=== PATIENT | female | born 1985 | race Caucasian/White ===

== ENCOUNTER 2020-05-23 17:36 | Emergency (ER) | payer OTHER, MEDICAID ==
[~2020-05-23] VITALS: Ht 167.6 cm; Wt 74.8 kg
[~2020-05-23 17:36] MED LIST: ACETAMINOPHEN-1 EAC1 PO; AMBIEN 5 MG TABL5 M1 PO; AMOXICILLIN 50500 MG PO; BENTYL 20 MG TA20 M1 PO; BUSPIRONE HCL10 MG PO; CALCIUM CITRAT250 MG PO; CELEXA20 MG; CLEOCIN HCL150 MG PO; FLEXERIL PO; HYDROCODONE-AP1 EAC6 PO; IBUPROFEN 800800 M1 PO; KETOCONAZOLE 2200 MG; LIDOCAINE VISC100 M1 SWISH&SPIT; LIDOCAINE VISC100 ML SWISH&SPIT; ONDANSETRON HCL4 M2 PO; TUMS PO; ZOFRAN ODT4 MG PO; ZOLOFT25 MG PO
[2020-05-23] MEDS ORDERED: [UNRECOGNIZED DRUG - OTHER] (17:47)
[2020-05-23] MEDS ORDERED: CALCIUM500 M1 PO (17:47)
[2020-05-23 17:55] LABS: URINE BLOOD 3+ (Negative); URINE CLARITY CLEAR; URINE COLOR YELLOW; URINE GLUCOSE-RANDOM NEGATIVE (Negative); URINE LEUKOCYTES-REFLEX NEGATIVE (Negative); URINE NITRITE-REFLEX NEGATIVE (Negative); URINE PROTEIN 1+ (Negative); URINE SPECIFIC GRAVITY 1.025 (1.005-1.030); URINE UROBILINOGEN 0.2 E.U./dl (0.2-1.0)
[2020-05-23 17:59] LABS: ICTOTEST (BILI CONFIRMATORY) Negative (Negative); URINE BILIRUBIN 1+ (Negative); URINE KETONES 3+ (Negative)
[2020-05-23 18:00] LABS: ABSOLUTE BASOPHILS 0.1 thou/uL (0.0-0.2); ABSOLUTE EOSINOPHILS 0.1 thou/uL (0.0-0.7); ABSOLUTE LYMPHOCYTES 2.6 thou/uL (0.8-5.3); ABSOLUTE MONOCYTES 0.5 thou/uL (0.0-1.2); ABSOLUTE NEUTROPHILS 6.9 thou/uL (1.6-8.1); BASOPHILS 0.7 %; EOSINOPHILS 0.9 %; HEMATOCRIT 42.2 % (37.0-47.0); HEMOGLOBIN 13.9 gm/dL (12.0-15.0); LYMPHOCYTES 25.8 %; MCH 25.4 pg (26.0-34.0); MCHC 32.8 g/dL (28.0-37.0); MCV 77.5 fL (80.0-100.0); MONOCYTES 5.3 %; MPV 8.3 fl. (7.2-11.1); NUCLEATED RBCS 0 /100WBC; PLATELET COUNT* 245 thou/uL (150-400); POLYS 67.3 %; RBC 5.45 mil/uL (4.20-5.00); RDW-CV 15.4 % (10.5-14.5); WBC 10.2 thou/uL (4.0-11.0)
[2020-05-23 18:03] LABS: MUCUS 4-6 Moderate strn/LPF (None Seen)
[2020-05-23 18:04] LABS: SQUAMOUS >10 Many /LPF (0-3)
[2020-05-23 18:05] LABS: CASTS None Seen /LPF (None Seen); CRYSTALS None Seen /LPF (None Seen); URINE WBC-REFLEX 0-5 Rare /HPF (0-5)
[2020-05-23 18:09] LABS: CALCIUM 6.9 mg/dL (8.5-10.1); CREATININE 0.8 mg/dL (0.6-1.3); POTASSIUM 3.2 mmol/L (3.5-5.1)
[2020-05-23 18:13] LABS: TOTAL BILIRUBIN 0.4 mg/dL (<0.1-1.0); TOTAL PROTEIN 8.2 g/dL (6.4-8.2)
[2020-05-23] MEDS ORDERED: NORCO 5-325 TA1 EAC2 PO (20:05)
[2020-05-23 20:17] VITALS: BP 130/67
--- NOTE | 2020-05-24 14:06 | EKG ---
[place] [address] ELECTROCARDIOGRAM REPORT Name: DELANEYKRISTINE REZA Room: [facility]#: [id number] Admission: 05/23/20 Attend Phys: Discharge: 05/23/20 Date of : 89 Date of Service: 05/23/201802 Report #: [id number] THIS REPORT FOR: //name// [facility] ED Test Date: 2020-05-23 Test Time: 18:03:18 Pat Name: KRISTINE DELANEY Department: Room: Gender: F Director Diversity: : 1985 Requested By: Ion Sotelo Order Number: [id number] MD: Noam Daniels Measurements Intervals [place] Rate: 92 P: 61 SD: 138 QRS: 64 QRSD: 78 T: 56 QT: 380 QTc: 471 Interpretive Statements Sinus rhythm Probable left atrial enlargement RSR' in V1 or V2, right VCD or RVH No previous ECG available for comparison Electronically Signed On 05-24-2020 14:06:27 [employer] by Noam Daniels [email or web address] <ELECTRONICALLY SIGNED> By: Daniela Daniels MD, [facility] 05/24/20 1406 02 02 Daniela Daniels MD, [facility] /EPI
== END 2020-05-23 20:19 | disposition home or self-care (01) ==
LOC: M.ERS 17:36
PROVIDERS: Family Medicine
DX: R10.31 Right lower quadrant pain (principal); R11.0 Nausea; Z79.899 Other long term (current) drug therapy; Z91.040 Latex allergy status

== ENCOUNTER 2020-06-17 20:31 | Emergency (ER) | payer OTHER, MEDICAID ==
[~2020-06-17] VITALS: Ht 167.6 cm; Wt 86.2 kg
[~2020-06-17 20:31] MED LIST changes: +CALCIUM500 M1 PO; +NORCO 5-325 TA1 EAC2 PO; +[UNRECOGNIZED DRUG - OTHER]
[2020-06-17 20:52] LABS: URINE BILIRUBIN NEGATIVE (Negative); URINE BLOOD 2+ (Negative); URINE CLARITY CLEAR; URINE COLOR YELLOW; URINE GLUCOSE-RANDOM NEGATIVE (Negative); URINE KETONES 1+ (Negative); URINE LEUKOCYTES NEGATIVE (Negative); URINE NITRITE NEGATIVE (Negative); URINE PROTEIN NEGATIVE (Negative); URINE UROBILINOGEN 0.2 E.U./dl (0.2-1.0)
[2020-06-17 20:58] LABS: ABSOLUTE BASOPHILS 0.1 thou/uL (0.0-0.2); ABSOLUTE LYMPHOCYTES 2.7 thou/uL (0.8-5.3); ABSOLUTE MONOCYTES 0.7 thou/uL (0.0-1.2); ABSOLUTE NEUTROPHILS 8.9 thou/uL (1.6-8.1); BASOPHILS 0.5 %; EOSINOPHILS 0.4 %; HEMATOCRIT 43.6 % (37.0-47.0); HEMOGLOBIN 13.9 gm/dL (12.0-15.0); LYMPHOCYTES 21.7 %; MCH 24.8 pg (26.0-34.0); MCHC 31.9 g/dL (28.0-37.0); MCV 77.7 fL (80.0-100.0); MONOCYTES 5.8 %; MPV 8.4 fl. (7.2-11.1); NUCLEATED RBCS 0 /100WBC; PLATELET COUNT* 265 thou/uL (150-400); POLYS 71.6 %; RBC 5.61 mil/uL (4.20-5.00); RDW-CV 15.2 % (10.5-14.5); WBC 12.5 thou/uL (4.0-11.0)
[2020-06-17 21:03] LABS: SQUAMOUS 4-10 Moderate /LPF (0-3)
[2020-06-17 21:04] LABS: BACTERIA >30 Many /HPF (None Seen); CASTS None Seen /LPF (None Seen); CRYSTALS None Seen /LPF (None Seen); MUCUS 4-6 Moderate strn/LPF (None Seen); URINE WBC 0-5 Rare /HPF (0-5)
[2020-06-17 21:07] LABS: CALCIUM 8.2 mg/dL (8.5-10.1); CREATININE 0.9 mg/dL (0.6-1.3); POTASSIUM 3.5 mmol/L (3.5-5.1)
[2020-06-17 21:12] LABS: TOTAL BILIRUBIN 0.3 mg/dL (<0.1-1.0); TOTAL PROTEIN 8.2 g/dL (6.4-8.2)
[2020-06-17] MEDS ORDERED: BENTYL 10 MG CA10 MG PO (23:16)
[2020-06-17] MEDS ORDERED: ZOFRAN ODT4 MG PO (23:16)
[2020-06-18 00:01] VITALS: BP 145/76
== END 2020-06-18 00:01 | disposition home or self-care (01) ==
LOC: M.ERS 20:31
PROVIDERS: Physician Assistant
DX: K52.9 Noninfective gastroenteritis and colitis, unspecified (principal); E89.0 Postprocedural hypothyroidism; Z91.040 Latex allergy status

== ENCOUNTER 2020-12-22 18:25 | Emergency (ER) | payer OTHER, MEDICAID ==
[~2020-12-22] VITALS: Ht 167.6 cm; Wt 77.1 kg
[~2020-12-22 18:25] MED LIST changes: +BENTYL 10 MG CA10 MG PO
[2020-12-22 20:19] LABS: URINE BILIRUBIN NEGATIVE (Negative); URINE BLOOD TRACE (Negative); URINE CLARITY CLEAR; URINE COLOR YELLOW; URINE GLUCOSE-RANDOM NEGATIVE (Negative); URINE KETONES NEGATIVE (Negative); URINE LEUKOCYTES-REFLEX TRACE (Negative); URINE NITRITE-REFLEX NEGATIVE (Negative); URINE PROTEIN NEGATIVE (Negative); URINE UROBILINOGEN 0.2 E.U./dl (0.2-1.0)
[2020-12-22 20:23] LABS: BACTERIA-REFLEX 1-9 Few /HPF (None Seen); CASTS None Seen /LPF (None Seen); CRYSTALS None Seen /LPF (None Seen); SQUAMOUS 0-3 Few /LPF (0-3); URINE RBC 0-2 Rare /HPF (0-2); URINE WBC-REFLEX 0-5 Rare /HPF (0-5)
[2020-12-22 21:25] LABS: ABSOLUTE BASOPHILS 0.1 thou/uL (0.0-0.2); ABSOLUTE EOSINOPHILS 0.1 thou/uL (0.0-0.7); ABSOLUTE LYMPHOCYTES 3.2 thou/uL (0.8-5.3); ABSOLUTE MONOCYTES 0.7 thou/uL (0.0-1.2); ABSOLUTE NEUTROPHILS 6.1 thou/uL (1.6-8.1); BASOPHILS 0.9 %; EOSINOPHILS 1.5 %; HEMATOCRIT 39.6 % (37.0-47.0); HEMOGLOBIN 13.3 gm/dL (12.0-15.0); LYMPHOCYTES 31.5 %; MCH 27.4 pg (26.0-34.0); MCHC 33.6 g/dL (28.0-37.0); MCV 81.6 fL (80.0-100.0); MONOCYTES 6.5 %; MPV 8.3 fl. (7.2-11.1); NUCLEATED RBCS 0 /100WBC; PLATELET COUNT* 208 thou/uL (150-400); POLYS 59.6 %; RBC 4.86 mil/uL (4.20-5.00); RDW-CV 15.1 % (10.5-14.5); WBC 10.2 thou/uL (4.0-11.0)
[2020-12-22 21:41] LABS: CALCIUM 6.8 mg/dL (8.5-10.1); CREATININE 0.8 mg/dL (0.6-1.3); POTASSIUM 4.1 mmol/L (3.5-5.1)
[2020-12-22 21:44] LABS: ALBUMIN 3.4 g/dL (3.4-5.0); MAGNESIUM 1.9 mg/dL (1.8-2.4); TOTAL BILIRUBIN 0.2 mg/dL (<0.1-1.0); TOTAL PROTEIN 6.9 g/dL (6.4-8.2)
[2020-12-22] MEDS ORDERED: ZOFRAN ODT4 MG PO (22:08)
[2020-12-22] MEDS ORDERED: FLEXERIL PO (22:08)
[2020-12-22 22:18] VITALS: BP 134/83
--- NOTE | 2020-12-23 16:25 | EKG ---
[place] [address] ELECTROCARDIOGRAM REPORT Name: DELANEYKRISTINE Seals Room: [facility]#: [id number] Admission: 12/22/20 Attend Phys: Discharge: 12/22/20 Date of : 89 Date of Service: 12/22/20 1830 Report #: [id number] THIS REPORT FOR: //name// [facility] ED Test Date: 2020-12-22 Test Time: 18:30:00 Pat Name: KRISTINE DELANEY Department: Room: Gender: F Gopherman: DOROTHY : 1985 Requested By: Carol Henson Order Number: [id number] MD: Phillip Paulino Measurements Intervals [place] Rate: 86 P: 39 AL: 119 QRS: 74 QRSD: 96 T: 58 QT: 353 QTc: 423 Interpretive Statements Sinus rhythm with sinus arrhythmia Borderline short AL interval Compared to ECG 05/23/2020 18:03:18 Right ventricular hypertrophy no longer present Electronically Signed On 12-23-2020 16:25:08 CDT by Phillip Paulino [email or web address] <ELECTRONICALLY SIGNED> By: Phillip Paulino MD, [facility] 12/23/20 1625 1830 1830 Phillip Paulino MD, [facility] /EPI
== END 2020-12-22 22:19 | disposition home or self-care (01) ==
LOC: M.ERS 18:25
PROVIDERS: Emergency Medicine
DX: R07.89 Other chest pain (principal); R51.9 Headache, unspecified; E83.51 Hypocalcemia; Z91.040 Latex allergy status

== ENCOUNTER 2021-05-09 12:25 | Emergency (ER) | payer OTHER, MEDICAID ==
[~2021-05-09] VITALS: Ht 167.6 cm; Wt 77.1 kg
[2021-05-09 12:30] VITALS: BP 135/86
[2021-05-09] MEDS ORDERED: NEURONTIN100 MG PO (12:32)
[2021-05-09] MEDS ORDERED: DESYREL150 MG PO (12:33)
[2021-05-09] MEDS ORDERED: APAP W/CODEINE1 TA2 PO (12:52)
[2021-05-09] MEDS ORDERED: LIDOCAINE VISC100 ML SWISH&SPIT (12:52)
[2021-05-09] MEDS ORDERED: AMOXIL 875 MG875 M1 PO (12:52)
== END 2021-05-09 13:06 | disposition home or self-care (01) ==
LOC: M.ERS 12:25
DX: K08.89 Other specified disorders of teeth and supporting structures (principal); F32.9 Major depressive disorder, single episode, unspecified; Z79.899 Other long term (current) drug therapy; Z91.040 Latex allergy status

== ENCOUNTER 2021-06-09 09:57 | Emergency (ER) | payer OTHER, MEDICAID ==
[~2021-06-09] VITALS: Ht 167.6 cm; Wt 71.2 kg
[~2021-06-09 09:57] MED LIST changes: +AMOXIL 875 MG875 M1 PO; +APAP W/CODEINE1 TA2 PO; +DESYREL150 MG PO; +NEURONTIN100 MG PO
[2021-06-09] MEDS ORDERED: CALCIUM500 MG PO (10:13)
[2021-06-09] MEDS ORDERED: PARICALCITOL1 MCG PO (10:13)
[2021-06-09 11:40] VITALS: BP 140/83
== END 2021-06-09 11:41 | disposition home or self-care (01) ==
LOC: M.ERS 09:57
DX: S50.02XA Contusion of left elbow, initial encounter (principal); F32.9 Major depressive disorder, single episode, unspecified; Z98.890 Other specified postprocedural states; Z79.899 Other long term (current) drug therapy; Z91.040 Latex allergy status; W10.8XXA Fall (on) (from) other stairs and steps, initial encounter; Y93.89 Activity, other specified; Y92.89 Other specified places as the place of occurrence of the external cause; Y99.8 Other external cause status

== ENCOUNTER 2021-06-26 05:33 | Emergency (ER) | payer OTHER, MEDICAID ==
[~2021-06-26] VITALS: Ht 167.6 cm; Wt 79.4 kg
[~2021-06-26 05:33] MED LIST changes: +CALCIUM500 MG PO; +PARICALCITOL1 MCG PO
[2021-06-26] MEDS ORDERED: PERCOCET 7.5-31 EAC1 PO (06:27)
[2021-06-26 06:44] VITALS: BP 131/81
== END 2021-06-26 06:45 | disposition home or self-care (01) ==
LOC: M.ERS 05:33
DX: S92.421A Displaced fracture of distal phalanx of right great toe, initial encounter for closed fracture (principal); F32.9 Major depressive disorder, single episode, unspecified; Z98.890 Other specified postprocedural states; Z79.899 Other long term (current) drug therapy; Z91.040 Latex allergy status; W22.01XA Walked into wall, initial encounter; Y93.89 Activity, other specified; Y92.89 Other specified places as the place of occurrence of the external cause; Y99.8 Other external cause status

== ENCOUNTER → 2021-07-28 | Outpatient (CLI) | payer OTHER, MEDICAID ==
[~2021-07-28] MED LIST changes: +PERCOCET 7.5-31 EAC1 PO
== END ==
LOC: M.LAB 16:04
PROVIDERS: ATTEND Podiatrist Foot & Ankle Surgery
DX: Z01.812 Encounter for preprocedural laboratory examination (principal); Z20.822 Contact with and (suspected) exposure to COVID-19